=== PATIENT | female | born 1995 | race Caucasian/White ===

== ENCOUNTER 2017-07-20 20:01 | Emergency (ER) | payer OTHER | END 2017-07-20 22:42 | disposition other institution (70) | LOC: ED 20:01 | DX: Z02.89 Encounter for other administrative examinations (principal); S93.401A Sprain of unspecified ligament of right ankle, initial encounter; J45.909 Unspecified asthma, uncomplicated; X58.XXXA Exposure to other specified factors, initial encounter; Y93.89 Activity, other specified; Y99.8 Other external cause status; Y92.89 Other specified places as the place of occurrence of the external cause ==

== ENCOUNTER 2017-07-20 20:01 | Emergency (ER) | payer OTHER ==
[2017-07-20 22:42] VITALS: BP 113/75
== END 2017-07-20 22:42 | disposition other institution (70) ==
LOC: ED 20:01
DX: S93.401A Sprain of unspecified ligament of right ankle, initial encounter (principal); J45.909 Unspecified asthma, uncomplicated; X58.XXXA Exposure to other specified factors, initial encounter; Y93.89 Activity, other specified; Y99.8 Other external cause status; Y92.89 Other specified places as the place of occurrence of the external cause